=== PATIENT | female | born 1970 | race Caucasian/White ===

== ENCOUNTER 2017-09-13 17:21 | Inpatient (IN) | payer MEDICAID ==
[~2017-09-13] VITALS: Ht 175.3 cm; Wt 81.1 kg
[2017-09-13] MEDS ORDERED: ONDANSETRON 2MG/ML, 2ML IVPush ONE (18:00)
[2017-09-13] MEDS ORDERED: SODIUM CHLORIDE 0.9% 1,000ML IVBOLUS ONE (18:00)
[2017-09-13] MEDS ORDERED: MORPHINE SULFATE 4 MG/ML, 1ML IVPush PRN (18:00)
[2017-09-13] MEDS ORDERED: SODIUM CHLORIDE FLUSH 10ML SYR IVF ONE (18:00)
[2017-09-13 18:11] LABS: HEMATOCRIT 40.1 % (34.6-47.8); HEMOGLOBIN 13.6 g/dL (11.7-16.4); WHITE BLOOD COUNT 16.7 x10^3/uL (3.4-10)
[2017-09-13 18:23] LABS: ASPARTATE AMINO TRANSFERASE 9 U/L (15-37); BLOOD UREA NITROGEN 9 mg/dL (7-18)
[2017-09-13] MEDS ORDERED: HEPARIN 5,000 UNITS/ML, 1ML IV ONE (19:00)
[2017-09-13] MEDS ORDERED: HEPARIN 25,000 UNITS/500ML PMX 500 ML ONE (19:13)
[2017-09-13] MEDS ORDERED: HEPARIN 5,000 UNITS/ML, 1ML ONE (19:15)
[2017-09-13] MEDS ORDERED: ONDANSETRON 2MG/ML, 2ML ONE (19:16)
[2017-09-13] MEDS ORDERED: morphine SULFATE 10 MG/ML, 1ML ONE (19:18)
[2017-09-13] MEDS ORDERED: SODIUM CHLORIDE 0.9% 1,000 ML IV SCH (19:58)
[2017-09-13] MEDS ORDERED: [UNRECOGNIZED DRUG - CODE] PO (19:59)
[2017-09-13] MEDS ORDERED: ACETAMINOPHEN 325 MG TABLET PO PRN (20:00)
[2017-09-13] MEDS ORDERED: DIPH25TA24 PO (20:00)
[2017-09-13] MEDS ORDERED: ONDANSETRON 2MG/ML, 2ML IVPush PRN (20:00)
[2017-09-13] MEDS ORDERED: GABA300S PO (20:02)
[2017-09-13] MEDS ORDERED: ESTR1PAT25 PO (20:04)
[2017-09-13] MEDS ORDERED: SIMV20OR PO (20:05)
[2017-09-13] MEDS: HEPARIN 25,000 UNITS/500ML PMX 500 ML IV PRN (20:59)
[2017-09-13] MEDS ORDERED: OMNIPAQUE 350 MG/ML, 100ML BOTTLE ONE (21:27)
[2017-09-13 22:07] VITALS: BP 128/78
[2017-09-13] MEDS: morphine SULFATE 10 MG/ML, 1ML IVPush PRN (22:22)
[2017-09-13] MEDS: METHOCARBAMOL 750 MG TABLET PO SCH (22:45)
[2017-09-13] MEDS: SIMVASTATIN 20 MG TABLET PO SCH (22:45)
[2017-09-14] MEDS: HEPARIN 5,000 UNITS/ML, 1ML IV PRN ×4 (01:26→22:47)
[2017-09-14] MEDS: HYDROcodone/APAP 5/325 TABLET PO PRN ×3 (01:37→18:31)
[2017-09-14 02:42] VITALS: BP 111/68
[2017-09-14] MEDS: morphine SULFATE 10 MG/ML, 1ML IVPush PRN ×4 (05:25→21:12)
[2017-09-14 06:56] LABS: HEMATOCRIT 33.9 % (34.6-47.8); HEMOGLOBIN 11.4 g/dL (11.7-16.4); WHITE BLOOD COUNT 14.8 x10^3/uL (3.4-10)
[2017-09-14 07:00] LABS: BLOOD UREA NITROGEN 10 mg/dL (7-18)
[2017-09-14 08:02] VITALS: BP 107/68
[2017-09-14] MEDS ORDERED: ALTEPLASE 10 MG in SODIUM CHLORIDE 0.9% 90 ML IV SCH (08:30)
[2017-09-14] MEDS ORDERED: LIDOCAINE 1%, 20ML ONE ×2 (08:59→11:55)
[2017-09-14] MEDS: METHOCARBAMOL 750 MG TABLET PO SCH ×2 (09:00→16:37)
[2017-09-14] MEDS ORDERED: FENTANYL PF 100 MCG/2ML ONE ×2 (09:00→10:17)
[2017-09-14] MEDS: GABAPENTIN 300 MG CAPSULE PO SCH (09:00)
[2017-09-14] MEDS ORDERED: FLUMAZENIL 0.1 MG/1 ML, 5ML ONE (09:01)
[2017-09-14] MEDS ORDERED: MIDAZOLAM 1 MG/ML, 5ML ONE ×2 (09:01→10:17)
[2017-09-14] MEDS ORDERED: NALOXONE 1 MG/ML, 2ML ONE (09:01)
[2017-09-14] MEDS ORDERED: VISIPAQUE 270 MG/ML, 50ML BOTTLE ONE (12:01)
[2017-09-14 12:42] VITALS: BP 141/87
[2017-09-14] MEDS: SODIUM CHLORIDE 0.9% 1,000 ML IV SCH ×2 (14:04→19:43)
[2017-09-14] MEDS ORDERED: OMNIPAQUE 350 MG/ML, 100ML BOTTLE ONE (14:52)
[2017-09-14] MEDS ORDERED: PHARMACY MAY ADJ FOR RENAL FX MC PRN (15:30)
[2017-09-14 15:56] LABS: IS PT STATUS REG ER OR PRE ER? NO
[2017-09-14 18:48] VITALS: BP 107/67
[2017-09-14] MEDS: HEPARIN 25,000 UNITS/500ML PMX 500 ML IV PRN (19:45)
[2017-09-14] MEDS ORDERED: CALCIUM CARBONATE 500 MG TAB.CHEW PO PRN (20:30)
[2017-09-14] MEDS: SIMVASTATIN 20 MG TABLET PO SCH (21:16)
[2017-09-14 21:50] LABS: IS PT STATUS REG ER OR PRE ER? NO
[2017-09-14] MEDS ORDERED: DIPHENHYDRAMINE 25 MG CAPSULE PO ONE (23:00)
[2017-09-15] MEDS: SODIUM CHLORIDE 0.9% 1,000 ML IV SCH ×3 (01:03→14:49)
[2017-09-15] MEDS: METHOCARBAMOL 750 MG TABLET PO SCH ×4 (01:03→20:12)
[2017-09-15 01:13] VITALS: BP 112/69
[2017-09-15] MEDS: HYDROcodone/APAP 5/325 TABLET PO PRN ×4 (03:27→20:11)
[2017-09-15 05:22] LABS: HEMATOCRIT 29.9 % (34.6-47.8); HEMOGLOBIN 10.2 g/dL (11.7-16.4); WHITE BLOOD COUNT 13.4 x10^3/uL (3.4-10)
[2017-09-15 05:37] LABS: BLOOD UREA NITROGEN 7 mg/dL (7-18)
[2017-09-15] MEDS: HEPARIN 5,000 UNITS/ML, 1ML IV PRN ×2 (06:13→17:32)
[2017-09-15 07:04] VITALS: BP 106/69
[2017-09-15] MEDS: GABAPENTIN 300 MG CAPSULE PO SCH ×2 (09:26→20:12)
[2017-09-15] MEDS: HEPARIN 25,000 UNITS/500ML PMX 500 ML IV PRN (12:35)
[2017-09-15 13:11] VITALS: BP 138/83
[2017-09-15] MEDS ORDERED: CLOPIDOGREL 300 MG TABLET PO ONE (14:00)
[2017-09-15] MEDS ORDERED: DIPHENHYDRAMINE 25 MG CAPSULE PO PRN (14:00)
[2017-09-15] MEDS ORDERED: POTASSIUM CHLORIDE 20 MEQ TAB.ER.PRT PO ONE (15:30)
[2017-09-15] MEDS ORDERED: WARFARIN 10 MG TABLET PO-COUM SCH (18:00)
[2017-09-15 19:53] VITALS: BP 115/77
[2017-09-15] MEDS: SIMVASTATIN 20 MG TABLET PO SCH (20:11)
[2017-09-15] MEDS: DOCUSATE 100 MG CAPSULE PO SCH (20:12)
[2017-09-16] MEDS: HYDROcodone/APAP 5/325 TABLET PO PRN ×4 (01:25→15:19)
[2017-09-16 01:29] VITALS: BP 121/82
[2017-09-16 03:56] LABS: HEMATOCRIT 29.8 % (34.6-47.8); WHITE BLOOD COUNT 12.3 x10^3/uL (3.4-10)
[2017-09-16 04:10] LABS: DIFF TOTAL CELLS COUNTED 100 CELL DIFF
[2017-09-16 04:11] LABS: VERIFY COUNTS? YES
[2017-09-16 04:14] LABS: BLOOD UREA NITROGEN 9 mg/dL (7-18)
[2017-09-16] MEDS: METHOCARBAMOL 750 MG TABLET PO SCH ×3 (05:20→16:48)
[2017-09-16] MEDS: HEPARIN 25,000 UNITS/500ML PMX 500 ML IV PRN (05:27)
[2017-09-16 07:09] VITALS: BP 122/81
[2017-09-16] MEDS ORDERED: CLOPIDOGREL 75 MG TABLET PO SCH (09:00)
[2017-09-16] MEDS: HEPARIN 5,000 UNITS/ML, 1ML IV PRN (09:34)
[2017-09-16] MEDS: GABAPENTIN 300 MG CAPSULE PO SCH (09:35)
[2017-09-16] MEDS: DOCUSATE 100 MG CAPSULE PO SCH (09:35)
[2017-09-16] MEDS: SODIUM CHLORIDE 0.9% 1,000 ML IV SCH (10:27)
[2017-09-16] MEDS ORDERED: WARFARIN HIGH DOSE PROTOCOL XX SCH (12:00)
[2017-09-16] MEDS ORDERED: ENOXAPARIN 80 MG/0.8 ML SQ SCH (13:00)
[2017-09-16 13:11] VITALS: BP 139/83
[2017-09-16] MEDS ORDERED: RIVA20TA PO (17:16)
[2017-09-16] MEDS ORDERED: DOCU-131 PO (17:16)
[2017-09-16] MEDS ORDERED: CLOP75TA PO (17:17)
[2017-09-16 17:50] VITALS: BP 148/84
[2017-09-16] MEDS ORDERED: WARFARIN 7.5 MG TABLET PO-COUM ONE (18:00)
[2017-09-16 20:07] LABS: PROTHROMBIN TIME 9.4 sec (.)
== END 2017-09-16 19:43 | disposition home or self-care (01) | DRG 272 ==
LOC: ED 18:42 → EDIP 19:58 → 3NE 22:03 → 5SO 09-14 12:32
PROVIDERS: ADMIT Hospitalist; ATTEND Hospitalist
PROC: 06CY3ZZ Extirpation of Matter from Lower Vein, Percutaneous Approach (ICD-10-PCS; principal; 2017-09-14)
PROC: 067D3DZ Dilation of Left Common Iliac Vein with Intraluminal Device, Percutaneous Approach (ICD-10-PCS; 2017-09-14)
PROC: 3E03317 Introduction of Other Thrombolytic into Peripheral Vein, Percutaneous Approach (ICD-10-PCS; 2017-09-14)
DX: I82.412 Acute embolism and thrombosis of left femoral vein (principal); E78.5 Hyperlipidemia, unspecified; F41.9 Anxiety disorder, unspecified; Z87.891 Personal history of nicotine dependence
CPT/HCPCS: 36010; 36011; 36415; 37187; 37212; 37238; 71275; 74177; 76937; 80048; 80053; 81241; 83735; 84100; 84484; 85025; 85300; 85301; 85303; 85306; 85520; 85598; 85610; 85613; 85670; 85730; 85732; 86146; 86147; 93005; 96361; 96374; 96375; 99156; 99157; C1725; C1894; J1644; J1650; J2250; J2405; J3010; J3490; Q9966; Q9967; C1751; C1757; C1769; C1876; J2270; J2310; J7030; Q0163

== ENCOUNTER → 2017-11-25 | Outpatient (CLI) | payer MEDICAID ==
[~2017-11-25] MED LIST: CLOP75TA PO; DIPH25TA24 PO; DOCU-131 PO; ESTR1PAT25 PO; GABA300S PO; RIVA20TA PO; SIMV20OR PO; [UNRECOGNIZED DRUG - CODE] PO
== END | disposition home or self-care (01) ==
LOC: CFH 15:12
PROVIDERS: ATTEND Emergency Medicine
DX: Z12.31 Encounter for screening mammogram for malignant neoplasm of breast (principal); Z80.3 Family history of malignant neoplasm of breast
CPT/HCPCS: 77067

== ENCOUNTER → 2018-03-01 | Outpatient (CLI) | payer MEDICAID | END | disposition home or self-care (01) | LOC: CFH 10:38 | PROVIDERS: ATTEND Emergency Medicine | DX: M25.551 Pain in right hip (principal); M25.552 Pain in left hip | CPT/HCPCS: 73523 ==

== ENCOUNTER → 2018-12-26 | Outpatient (CLI) | payer MEDICAID | END | disposition home or self-care (01) | LOC: CFH 09:33 | PROVIDERS: ATTEND Family Medicine | DX: Z12.31 Encounter for screening mammogram for malignant neoplasm of breast (principal); Z80.3 Family history of malignant neoplasm of breast | CPT/HCPCS: 77067 ==

== ENCOUNTER 2021-05-15 14:36 | Outpatient (CLI) | payer MEDICAID | END 2021-05-15 23:59 | disposition home or self-care (01) | LOC: CFH 14:36 | PROVIDERS: ATTEND Internal Medicine | DX: Z12.31 Encounter for screening mammogram for malignant neoplasm of breast (principal) | CPT/HCPCS: 77063; 77067 ==

== ENCOUNTER → 2021-06-09 | Outpatient (CLI) | payer MEDICAID | END | disposition home or self-care (01) | LOC: CFH 13:51 | PROVIDERS: ATTEND Internal Medicine | DX: N63.11 Unspecified lump in the right breast, upper outer quadrant (principal) | CPT/HCPCS: 76642; 77065 ==

== ENCOUNTER 2021-06-29 10:49 | Outpatient (CLI) | payer MEDICAID ==
[2021-06-29] MEDS ORDERED: LIDOCAINE 1%, 20ML ONE (10:56)
[2021-06-29] MEDS ORDERED: LIDOCAINE 1%-EPI 1:100K, 30ML ONE (10:56)
== END 2021-06-29 23:59 | disposition home or self-care (01) ==
LOC: CFH 10:49
PROVIDERS: ATTEND Internal Medicine
DX: N63.11 Unspecified lump in the right breast, upper outer quadrant (principal); N60.21 Fibroadenosis of right breast
CPT/HCPCS: 19083; 77065; 88305; J3490